=== PATIENT | female | born 1990 | race Caucasian/White ===

== ENCOUNTER 2018-11-21 19:30 | Emergency (ER) | payer OTHER, SELFPAY ==
[2018-11-21 19:35] VITALS: BP 123/75; PULSE 65; RESP 18; TEMP 37; O2SAT 100; BMI 20.7
--- NOTE | 2018-11-21 19:38 | ED_ITS ---
HPI - Fall <Awa Kingsley PA-C - Last Filed: 11/21/18 21:48> General Chief Complaint: Fall Stated Complaint: fall, Right side face and shoulder pain Time Seen by Provider: 11/21/18 19:38 Source: patient Mode of arrival: ambulatory Limitations: no limitations History of Present Illness HPI Narrative: This healthy 28-year-old female states that she slipped on a rock while holding her toddler, and came down on her right shoulder, then hit the right side of her face on rocks. She states that she did not hit her head, no LOC, no vision change, nausea, vomiting, headache, neck pain, no lower body injury. She states that she can move her shoulder a little bit but very painful. Her arm feels kind of numb and tingly, no weakness that she can tell. She does not think she is as her had a recent vasectomy, but not tested yet. Related Data Previous Rx's Medication Instructions Recorded tramadol 50 mg PO Q4-6H PRN #12 tab 11/21/18 Allergies Allergy/AdvReac Type Severity Reaction Status Date / Time No Known Drug Allergies Allergy Verified 11/21/18 19:44 Review of Systems <Awa Kingsley PA-C - Last Filed: 11/21/18 21:48> Review of Systems ROS Unobtainable: All systems reviewed & are unremarkable except as noted in HPI and below Exam <Awa Kingsley PA-C - Last Filed: 11/21/18 21:48> Narrative Exam Narrative: GENERAL APPEARANCE: Patient appears mildly uncomfortable, in NAD HEAD: NC/AT, tender over the right mid to posterior maxilla, less tender over the right mid to posterior mandible EYES: PERRL, EOMI. EARS: Normal auditory canals NOSE: Normal nasal mucosa, no palpable bony abnormality ORAL CAVITY: Normal oropharynx. THROAT: Clear. NECK/THYROID: Neck supple, full range of motion LUNGS: Clear to auscultation bilaterally HEART: RRR without murmur, nl S1, S2, no S3 or S4. MUSCULOSKELETAL: No point tenderness over the cervical spine or paraspinal musculature, full active C-spine range of motion. Tender over the right shoulder acromion lateral bony prominences, no tenderness over the scapula or clavicle. No skin tenting. She is able to abduct the shoulder to about 20? with tenderness, holds the shoulder abducted at her side. Normal range of motion the right elbow. [employer] 5/5 NEUROVASCULAR: Upper extremity sensation grossly intact bilaterally, radial and ulnar pulses 2+ bilaterally Initial Vital Signs Initial Vital Signs: Vital Signs Temperature 98.6 F 11/21/18 19:35 Pulse Rate 65 11/21/18 19:35 Respiratory Rate 18 11/21/18 19:35 Blood Pressure 123/75 11/21/18 19:35 Pulse Oximetry 100 11/21/18 19:35 <Cristobal Concepcion DO - Last Filed: 11/22/18 02:20> Initial Vital Signs Initial Vital Signs: Vital Signs Temperature 98.6 F 11/21/18 19:35 Pulse Rate 65 11/21/18 19:35 Respiratory Rate 18 11/21/18 19:35 Blood Pressure 123/75 11/21/18 19:35 Pulse Oximetry 100 11/21/18 19:35 PFSH <Awa Kingsley PA-C - Last Filed: 11/21/18 21:48> Medical History (Updated 11/21/18 @ 21:20 by Awa Kingsley PA-C) Ulcerative colitis, quiescent (Chronic) Surgical History (Updated 11/21/18 @ 20:09 by Awa Kingsley PA-C) Status post anterior cruciate ligament surgery (Resolved) Social History Smoking Status: Never smoker Social History Smoking Status: Never smoker Course <Awa Kingsley PA-C - Last Filed: 11/21/18 21:48> Additional Information: Patient is feeling improved with medications and sling. She will continue sling, ibuprofen, as needed tramadol and Tylenol, and follow- up with PCP or orthopedist she is established with at home early next week. She agreed to return if any acutely worsening symptoms or changes while in town Orders Ordered: ED Orders 11/21/18 20:02 CT facial bones wo con Stat XR shoulder RT min 2V Stat Discontinued Medications Acetaminophen (Tylenol) 650 mg PO NOW ONE Stop: 11/21/18 20:02 Last Admin: 11/21/18 20:06 Dose: 650 mg Ibuprofen (Advil) 800 mg PO NOW ONE Stop: 11/21/18 20:02 Last Admin: 11/21/18 20:07 Dose: 800 mg Tramadol HCl (Ultram) 50 mg PO NOW ONE Stop: 11/21/18 20:02 Last Admin: 11/21/18 20:07 Dose: 50 mg Tramadol HCl (Ultram 50mg Prepack) 1 bottle MISC SEEINSTR ONE Stop: 11/21/18 21:09 Last Admin: 11/21/18 21:12 Dose: 1 bottle Vital Signs - 8 hr 11/21/18 19:35 11/21/18 20:44 Temperature 98.6 F Pulse Rate 65 55 L Respiratory Rate 18 16 Blood Pressure 123/75 Blood Pressure [Left Arm] 109/70 Pulse Oximetry 100 99 <Cristobal Concepcion DO - Last Filed: 11/22/18 02:20> Orders Ordered: ED Orders 11/21/18 20:02 CT facial bones wo con Stat XR shoulder RT min 2V Stat Discontinued Medications Acetaminophen (Tylenol) 650 mg PO NOW ONE Stop: 11/21/18 20:02 Last Admin: 11/21/18 20:06 Dose: 650 mg Ibuprofen (Advil) 800 mg PO NOW ONE Stop: 11/21/18 20:02 Last Admin: 11/21/18 20:07 Dose: 800 mg Tramadol HCl (Ultram) 50 mg PO NOW ONE Stop: 11/21/18 20:02 Last Admin: 11/21/18 20:07 Dose: 50 mg Tramadol HCl (Ultram 50mg Prepack) 1 bottle MISC SEEINSTR ONE Stop: 11/21/18 21:09 Last Admin: 11/21/18 21:12 Dose: 1 bottle Vital Signs - 8 hr 11/21/18 19:35 11/21/18 20:44 Temperature 98.6 F Pulse Rate 65 55 L Respiratory Rate 18 16 Blood Pressure 123/75 Blood Pressure [Left Arm] 109/70 Pulse Oximetry 100 99 MDM - Fall <Awa Kingsley PA-C - Last Filed: 11/21/18 21:48> Lab Data Point of Care Testing Test Results Negative Imaging Data shoulder: Radiologist's impression: 17 Awa Kingsley PA-C Find Patient Imaging Ольга Segura 28 F 1990 ACTIVITY DATE EXAM STATUS AUTHOR 11/21/18 20:02 Signed PioVlad 11/21/18 20:[address] [address] XRay Report Signed Patient: Ольга Segura KMR#: [id number] : 1990Acct:[id number] Age/Sex: 28 / FDate of Service: 11/21/18 Loc: ED Accession Number: [id number] Procedure: XR shoulder RT min 2V Ordering Provider: Awa Kingsley P.A-C PROCEDURE: XR SHOULDER RT MIN 2V INDICATIONS: fall onto lateral shoulder, pain and immobility TECHNIQUE: 2 views of the shoulder were acquired. COMPARISON: None. FINDINGS: Bones: There is an inferior subluxation/dislocation of acromion in relation to distal clavicle. No acute fracture is seen. No suspicious bony lesions. Visualized ribs appear intact. Soft tissues: No suspicious soft tissue calcifications. IMPRESSION: Finding is suggestive of high-grade right acromioclavicular separation. No gross acute fracture. Dictated by: Vlad Suero M.D. on 11/21/2018 at 20:30 Approved by: Vlad Suero M.D. on 11/21/2018 at 20:31 facial bones: Radiologist's impression: 17 Awa Kingsley PA-C Find Patient Imaging Ольга Segura 28 F 1990 ACTIVITY DATE EXAM STATUS AUTHOR 11/21/18 20:02 Signed Vlad Suero 11/21/18 20:[address] [address] XRay Report Signed Patient: Ольга Segura KMR#: [id number] : 1990Acct:[id number] Age/Sex: 28 / FDate of Service: 11/21/18 Loc: ED Accession Number: [id number] Procedure: XR shoulder RT min 2V Ordering Provider: Awa Kingsley P.A-C PROCEDURE: XR SHOULDER RT MIN 2V INDICATIONS: fall onto lateral shoulder, pain and immobility TECHNIQUE: 2 views of the shoulder were acquired. COMPARISON: None. FINDINGS: Bones: There is an inferior subluxation/dislocation of acromion in relation to distal clavicle. No acute fracture is seen. No suspicious bony lesions. Visualized ribs appear intact. Soft tissues: No suspicious soft tissue calcifications. IMPRESSION: Finding is suggestive of high-grade right acromioclavicular separation. No gross acute fracture. Dictated by: Vlad Suero M.D. on 11/21/2018 at 20:30 Approved by: Vlad Suero M.D. on 11/21/2018 at 20:31 <Cristobal Concepcion DO - Last Filed: 11/22/18 02:20> Lab Data Point of Care Testing Test Results Negative Discharge Plan Departure Patient Disposition: Home Clinical Impression: Acromioclavicular joint separation, type 3 Qualifiers: Encounter type: initial encounter Laterality: right Qualified Code(s): S43.101A - Unspecified dislocation of right acromioclavicular joint, initial encounter Discharge Date/Time: 11/21/18 21:32 Interventions: ED Discharge Assessment Last Done: 11/21/18 21:31 Instructions: DI for AC Joint Separation Activity Restrictions/Additional Instructions: Please keep your right arm in the sling for comfort as well as protection to avoid further injury. Please take ibuprofen 600 mg every 8 hours for pain and inflammation since that has been helpful for you in the past, and it sounds like you have tolerated that without problems. You can take 50-100 mg of tramadol every 4-6 hours as needed (do not take more than 6 per day), and take it with Tylenol as they worked nicely together (do not exceed 3 g of Tylenol daily). Please see your PCP (or your orthopedist) early next week when you return for reassessment and referral, as this is typically treated with immobilization and physical therapy. Please return in the interim if you have any acutely worsening symptoms while you are here as we talked about. Please take your radiology disk to your follow up appointment Prescriptions: New tramadol 50 mg tablet 50 mg PO Q4-6H PRN (Reason: acute shoulder pain) Qty: 12 RF: 0 <Cristobal Concepcion DO - Last Filed: 11/22/18 02:20> Cosign ED Attending Gala Attestation: I was immediately available in the department for consultation. Documentation has been reviewed. I agree with assessment and plan.
--- NOTE | 2018-11-21 20:02 | DI.RAD.S_ITS ---
PROCEDURE: XR SHOULDER RT MIN 2V INDICATIONS: fall onto lateral shoulder, pain and immobility TECHNIQUE: 2 views of the shoulder were acquired. COMPARISON: None. FINDINGS: Bones: There is an inferior subluxation/dislocation of acromion in relation to distal clavicle. No acute fracture is seen. No suspicious bony lesions. Visualized ribs appear intact. Soft tissues: No suspicious soft tissue calcifications. IMPRESSION: Finding is suggestive of high-grade right acromioclavicular separation. No gross acute fracture. Dictated by: Vlad Suero M.D. on 11/21/2018 at 20:30 Approved by: Vlad Suero M.D. on 11/21/2018 at 20:31
--- NOTE | 2018-11-21 20:02 | DI.CT.S_ITS ---
PROCEDURE: CT FACIAL BONES WO CON INDICATIONS: fall, R. maxillary>mandibular pain TECHNIQUE: Noncontrast 2.5 mm thick axial images acquired from the mandible through the frontal sinuses, with coronal and sagittal reformatting. For radiation dose reduction, the following was used: automated exposure control, adjustment of mA and/or kV according to patient size. COMPARISON: None. FINDINGS: Image quality: Excellent. Bones and teeth: Orbital berkowitz are intact. Sinus berkowitz show no fracture or deformity. Nasal bones and septum are intact. Mild nasoseptal deviation to the right is seen with a bony spur. Visualized portions of the mandible demonstrate no fractures or subluxation. Zygomatic arches are intact. Pterygoid plates are intact. Visualized portions of the skull base and auditory canals are intact. Sinuses: Retention cyst versus mucocele in inferior portion of right maxillary sinus is seen. Rest of bilateral paranasal sinuses are well aerated. Mastoid air cells are aerated. Soft tissues: No edema, masses, or fluid collections. No enlarged lymph nodes. No soft tissue lacerations or debris. Vascular: Visualized vascular structures appear normal in the absence of contrast. Bony vascular foramina and canals are intact. IMPRESSION: 1. No acute facial bone or nasal bone fracture. Bilateral orbital berkowitz are intact. 2. Mucocele versus retention cyst in right maxillary sinus. The rest of bilateral paranasal sinuses are well aerated. Dictated by: Vlad Suero M.D. on 11/21/2018 at 20:31 Approved by: Vlad Suero M.D. on 11/21/2018 at 20:37
[2018-11-21] MEDS: ACETAMINOPHEN 325 MG TABLET 650 MG PO (20:06)
[2018-11-21] MEDS: IBUPROFEN 400 MG TABLET 800 MG PO (20:07)
[2018-11-21] MEDS: TRAMADOL 50 MG TABLET PO (20:07)
[2018-11-21 20:44] VITALS: BP 109/70; PULSE 55; RESP 16; O2SAT 99
[2018-11-21] MEDS: TRAMADOL 50 MG PREPACK 1 BOTTLE MISC (21:12)
== END 2018-11-21 21:32 | disposition home or self-care (01) ==
PROVIDERS: Emergency Provider Internal Medicine
DX: S43.101A Unspecified dislocation of right acromioclavicular joint, initial encounter (principal); S09.93XA Unspecified injury of face, initial encounter; W19.XXXA Unspecified fall, initial encounter
CPT/HCPCS: 70486; 73030; 81025; 99283; 99284